=== PATIENT | male | born 1955 | race Caucasian/White ===

== ENCOUNTER 2017-11-06 18:00 | Emergency (ER) | payer OTHER ==
[2017-11-06 18:12] VITALS: BP 122/70; PULSE 80; TEMP 97.8; BMI 20.3
--- NOTE | 2017-11-06 19:17 | PDOC ---
History of Present Illness - History of Present Illness Initial Comments: 11/06/17 19:48 The patient is a 62 year old male, who presents to the emergency department with , a complaint that his right knee appears to have more prominent veins than usual. The patient reports that he has been having to walk around more lately than he normally does and states that he has noticed more veins around his right knee. The patient reports he was concerned of a possible blood clot secondary to the veins he has been noticing around his right knee so he decided to come to the ED for evaluation. The patient reports that he has a history of a ruptured meniscus in the right knee from many years ago. The patient also endorses some mild right knee pain. He denies any recent travel, surgery or immobility. He denies any history of blood clots or family history of blood clots. He denies any recent injury or trauma. He denies any numbness, weakness or tingling. He denies any difficulty ambulating. He denies any recent fevers, chills, headache or dizziness. He denies any recent nausea, vomit, diarrhea or constipation. He denies any recent chest pain or shortness of breath. PAST MEDICAL HISTORY: no significant history PAST SURGICAL HISTORY: Pt. reports past ruptured meniscus in the right knee. FAMILY HISTORY: no pertinent history SOCIAL HISTORY: Pt lives at home and is retired. Review of systems General: No fevers or chills, no weakness, no weight loss HEENT: No change in vision. No sore throat,. No ear pain CardioVascular: No chest pain or shortness of breath Respiratory:No cough, or wheezing. Gastrointestinal: no nausea, vomiting, diarrhea or constipation, No rectal bleeding Genitourinary: No dysuria, hematuria, or frequency Musculoskeletal: (+) Mild right knee pain. Neurologic: No headache, vertigo, dizziness or loss of consciousness Psychiatric: nor depression Skin: No rashes or easy bruising Endocrine: no increased thirst or abnormal weight change Allergic: no skin or latex allergy All other systems reviewed and normal Physical Exam GENERAL: The patient is awake, alert, and fully oriented, in no acute distress. HEAD: Normal with no signs of trauma. EYES: Pupils equal, round and reactive to light, extraocular movements intact, sclera anicteric, conjunctiva clear. EXTREMITIES: (+) Mild swelling, appears to be chronic, on the medial aspect of the right knee. No ligament instability. No ecchymosis or erythema. Neurovascular intact. No swelling or edema distal to the knee, no tender palpable cords in the medial thigh. Normal range of motion. NEUROLOGICAL: Normal speech, normal gait. PSYCH: Normal mood, normal affect. SKIN: Warm, Dry, normal turgor, no rashes or lesions noted. <Tawanda Mahoney - Last Filed: 11/06/17 19:48> - General History Source: Patient Exam Limitations: No Limitations - History of Present Illness Initial Comments: A portion of this note was documented by scribe services under my direction. I have reviewed the details of the note, within reason, and agree with the documentation. The case summary and management plan written by me. Assessment and plan: This is a 62-year-old male who comes in complaining of right knee discomfort only when he walks on it for a long time period. Patient here in the emergency room denies any discomfort at this time. On my exam patient had some mild swelling medially that appeared to be from an old injury but no tenderness or ligamentous instability. There is no evidence of DVT on my examination had no risk factors for DVT. Patient was referred to an orthopedist if symptoms persisted and told to wear some support on his knee when he walked for long periods. Patient discharged home 11/06/17 19:55 <Garima Iqbal I - Last Filed: 11/06/17 19:56> - General Chief Complaint: Pain Stated Complaint: RIGHT KNEE/LEG PAIN Time Seen by Provider: 11/06/17 19:16 Past History <Tawanda Mahoney - Last Filed: 11/06/17 19:48> - Past Medical History COPD: No Diabetes: No GI Disorders: Yes (COLITIS) HTN: No - Surgical History Appendectomy: Yes - Suicide/Smoking/Psychosocial Hx Smoking Status: No Smoking History: Never smoked Have you smoked in the past 12 months: No Number of Cigarettes Smoked Daily: 0 Hx Alcohol Use: No Drug/Substance Use Hx: No Substance Use Type: None <Garima Iqbal I - Last Filed: 11/06/17 19:56> - Past Medical History Allergies/Adverse Reactions: Allergies Allergy/AdvReac Type Severity Reaction Status Date / Time lactose AdvReac Mild Verified 11/06/17 18:01 Home Medications: Ambulatory Orders Sulfasalazine [Azulfidine] 500 mg PO QID 01/24/15 *Physical Exam - Vital Signs Last Vital Signs Temp Pulse Resp BP Pulse Ox 97.8 F 80 18 122/70 100 11/06/17 18:00 18 18:00 11/06/17 18:00 11/06/17 18:00 11/06/17 18:00 <Tawanda Mahoney - Last Filed: 11/06/17 19:48> - Vital Signs Last Vital Signs Temp Pulse Resp BP Pulse Ox 97.8 F 80 18 122/70 100 11/06/17 18:00 11/06/17 18:00 11/06/17 18:00 11/06/17 18:00 11/06/17 18:00 <Garima Iqbal I - Last Filed: 11/06/17 19:56> *DC/Admit/Observation/Transfer - Attestations Scribe Attestion: 11/06/17 19:52 Documentation prepared by Tawanda Mahoney, acting as medical billing service for Garima Iqbal MD. <Tawanda Mahoney - Last Filed: 11/06/17 19:48> - Discharge Dispostion Admit: No <Garima Iqbal I - Last Filed: 11/06/17 19:56> Diagnosis at time of Disposition: Strain of right knee Qualifiers: Encounter type: initial encounter Qualified Code(s): S86.911A - Strain of unspecified muscle(s) and tendon(s) at lower leg level, right leg, initial encounter - Discharge Dispostion Disposition: HOME Condition at time of disposition: Stable - Patient Instructions Additional Instructions: For the pain you can take ibuprofen or Tylenol. In addition to that an elastic knee support and wear it when you have to do a lot of walking. It is [id number] at any pharmacy Follow-up with the orthopedist if he needed an orthopedist call [phone] for an appointment on Wednesday Return to the emergency department immediately with ANY new, persistent or worsening symptoms. Continue any medications as previously prescribed by your physician. You should follow up with your primary doctor as soon as possible regarding today's emergency department visit. . Please make sure your doctor reviews the results of your emergency evaluation. Thank you for coming to the Emergency Department today for your care. It was a pleasure to see you today. Please note that your evaluation is INCOMPLETE until you follow-up with your doctor.
== END 2017-11-06 19:55 | disposition home or self-care (01) ==
LOC: FER 18:00
DX: S86.911A Strain of unspecified muscle(s) and tendon(s) at lower leg level, right leg, initial encounter (principal); X58.XXXA Exposure to other specified factors, initial encounter; Y93.89 Activity, other specified; Y92.9 Unspecified place or not applicable
CPT/HCPCS: 99282-25

== ENCOUNTER 2018-08-30 00:29 | Emergency (ER) | payer OTHER ==
[2018-08-30 00:37] VITALS: BP 131/91; PULSE 62; TEMP 98.5; BMI 20.3
[2018-08-30] MEDS ORDERED: NAPROXEN 500 MG TABLET (FP) PO ONE (01:04)
--- NOTE | 2018-08-30 01:04 | PDOC ---
History of Present Illness <Frances Andino - Last Filed: 08/30/18 01:25> - History of Present Illness Initial Comments: 08/30/18 01:56 The patient is a 62 year old male, with a significant past medical history of colitis and sinusitis, who presents to the emergency department today complaining of top right incisor pain for one day. Patient notes he began experiencing pain in his right top molar, which he notes then radiated to his right top incisor. He states the pain is sharp in nature, exacerbated with biting down while eating, and is tender to touch. Patient reports taking an ibuprofen this afternoon at 2pm, and tylenol with his dinner to help alleviate his symptoms. He admits that he has not been to his dentist in a few years, and has multiple cavities in his teeth. The patient denies chest pain, shortness of breath, headache and dizziness. Denies fever, chills, nausea, vomit, diarrhea and constipation. Denies dysuria, frequency, urgency and hematuria. Allergies: NKA Past surgical history: None reported Social history: No reported <Rufina Hollis - Last Filed: 08/30/18 02:03> - General Chief Complaint: Pain, Acute Stated Complaint: TOOTH PAIN Time Seen by Provider: 08/30/18 00:54 Past History <Frances Andino - Last Filed: 08/30/18 01:25> - Past Medical History COPD: No Diabetes: No GI Disorders: Yes (COLITIS) HTN: No - Surgical History Appendectomy: Yes - Suicide/Smoking/Psychosocial Hx Smoking Status: No Smoking History: Never smoked Have you smoked in the past 12 months: No Number of Cigarettes Smoked Daily: 0 Information on smoking cessation initiated: No Hx Alcohol Use: No Drug/Substance Use Hx: No Substance Use Type: None <Rufina Hollis - Last Filed: 08/30/18 02:03> - Past Medical History Allergies/Adverse Reactions: Allergies Allergy/AdvReac Type Severity Reaction Status Date / Time lactose AdvReac Mild Verified 08/30/18 00:32 Home Medications: Ambulatory Orders Sulfasalazine [Azulfidine] 500 mg PO QID 01/24/15 Naproxen 500 mg PO BID PRN #14 tablet 08/30/18 Review of Systems - Review of Systems Comments:: 08/30/18 02:01 GENERAL/CONSTITUTIONAL: No fever or chills. No weakness. HEAD, EYES, EARS, NOSE AND THROAT: +Right top incisor pain. +Right top molar pain. No change in vision. No ear pain or discharge. No sore throat. GASTROINTESTINAL: No nausea, vomiting, diarrhea or constipation. GENITOURINARY: No dysuria, frequency, or change in urination. CARDIOVASCULAR: No chest pain or shortness of breath. RESPIRATORY: No cough, wheezing, or hemoptysis. MUSCULOSKELETAL: No joint or muscle swelling or pain. No neck or back pain. SKIN: No rash NEUROLOGIC: No headache, vertigo, loss of consciousness, or change in strength/ sensation. ENDOCRINE: No increased thirst. No abnormal weight change. HEMATOLOGIC/LYMPHATIC: No anemia, easy bleeding, or history of blood clots. ALLERGIC/IMMUNOLOGIC: No hives or skin allergy. <Rufina Hollis - Last Filed: 08/30/18 02:03> *Physical Exam - Vital Signs Last Vital Signs Temp Pulse Resp BP Pulse Ox 98.5 F 62 18 131/91 100 08/30/18 00:33 08/30/18 00:33 08/30/18 00:33 08/30/18 00:33 08/30/18 00:33 <Frances Andino - Last Filed: 08/30/18 01:25> - Vital Signs Last Vital Signs Temp Pulse Resp BP Pulse Ox 98.5 F 62 18 131/91 100 08/30/18 00:33 08/30/18 00:33 08/30/18 00:33 08/30/18 00:33 08/30/18 00:33 - Physical Exam Comments: 08/30/18 02:01 GENERAL: Awake, alert, and fully oriented, in no acute distress EYES: Sclera anicteric, conjunctiva clear ENT: +Multiple dental caries with significant caries to teeth 8 and 9, No pulp or dentin exposure. No surrounding erythema, abscess, or discharge. No gum edema. Normal submandibular space. LUNGS: Breath sounds equal, clear to auscultation bilaterally. No wheezes, and no crackles HEART: Regular rate and rhythm, normal S1 and S2, no murmurs, rubs or gallops ABDOMEN: Soft, nontender, normoactive bowel sounds. No guarding, no rebound. No masses EXTREMITIES: Normal range of motion, no edema. No clubbing or cyanosis. No cords , erythema, or tenderness NEUROLOGICAL: Normal speech, cranial nerves intact, normal gair <Rufina Hollis - Last Filed: 08/30/18 02:03> Moderate Sedation - Procedure Monitoring Vital Signs: Procedure Monitoring Vital Signs Temperature 98.5 F 08/30/18 00:33 Pulse Rate 62 08/30/18 00:33 Respiratory Rate 18 08/30/18 00:33 Blood Pressure 131/91 08/30/18 00:33 O2 Sat by Pulse Oximetry (%) 100 08/30/18 00:33 <Frances Andino - Last Filed: 08/30/18 01:25> - Procedure Monitoring Vital Signs: Procedure Monitoring Vital Signs Temperature 98.5 F 08/30/18 00:33 Pulse Rate 62 08/30/18 00:33 Respiratory Rate 18 08/30/18 00:33 Blood Pressure 131/91 08/30/18 00:33 O2 Sat by Pulse Oximetry (%) 100 08/30/18 00:33 <Rufina Hollis - Last Filed: 08/30/18 02:03> ED Treatment Course - Medications Given in the ED: ED Medications Discontinued Medications Generic Name Dose Route Start Last Admin Trade Name Freq PRN Reason Stop Dose Admin Naproxen 500 mg 08/30/18 01:04 08/30/18 01:10 Naprosyn - PO 08/30/18 01:05 500 mg ONCE ONE Administration <Frances Andino - Last Filed: 08/30/18 01:25> Medical Decision Making - Medical Decision Making 08/30/18 01:05 62yo M presents to the ED for pain teeth 8 and 9. SIgnificant dental caries noted on exam with no pulp/dentin exposure. No evidence of surrounding infection , abscess. Pt has appointment with dentist tomorrow, but requests pain medication to get him through the night. Plan for naproxen (pt last took advil 11hrs ago) and DC. I discussed the physical exam findings, ancillary test results and final diagnoses with the patient. I answered all of the patient's questions. The patient was satisfied with the care received and felt comfortable with the discharge plan and treatment plan. The patient will call their primary care physician within 24 hours to arrange follow-up and will return to the Emergency Department with any new, persistent or worsening symptoms. <Rufina Hollis - Last Filed: 08/30/18 02:03> *DC/Admit/Observation/Transfer - Attestations Scribe Attestion: Documentation prepared by ROYA Duong, acting as medical tech for Rufina Hollis MD. 08/30/18 01:26 <Frances Andino - Last Filed: 08/30/18 01:25> - Discharge Dispostion Decision to Admit order: No - Attestations Physician Attestion: 08/30/18 01:09 I, Dr. Rufina Hollis MD, attest that this document has been prepared under my direction and personally reviewed by me in its entirety. I further attest, that it accurately reflects all work, treatment, procedures and medical decision -making performed by me. <Rufina Hollis - Last Filed: 08/30/18 02:03> Diagnosis at time of Disposition: Tooth pain, Dental caries, Oral pain - Discharge Dispostion Disposition: HOME Condition at time of disposition: Stable - Prescriptions Prescriptions: Naproxen 500 mg PO BID PRN #14 tablet PRN Reason: Pain - Patient Instructions Printed Discharge Instructions: DI for Tooth Decay Additional Instructions: Follow up with your dentist within 1-2 days Take naproxen twice a day as needed for pain Take over the counter nexium with this medication to protect your stomach Do not take advil, aleve, motrin, ibuprofen or any other NSAIDs while you are taking naproxen Return to the emergency department if you have any new, worsening, or concerning symptoms
[2018-08-30] MEDS ORDERED: NAPROXEN 500 MG TABLET (FP) ONE (01:07)
== END 2018-08-30 01:11 | disposition home or self-care (01) ==
LOC: FER 00:29
DX: K02.9 Dental caries, unspecified (principal); K08.89 Other specified disorders of teeth and supporting structures
CPT/HCPCS: 99281-25

== ENCOUNTER 2019-03-06 23:22 | Emergency (ER) | payer OTHER ==
--- NOTE | 2019-03-06 23:25 | PDOC ---
History of Present Illness - General Chief Complaint: Pain, Acute Stated Complaint: RASH BETWEEN LEGS Time Seen by Provider: 03/06/19 23:24 - History of Present Illness Initial Comments: This 63-year-old man with a history of colitis but no other significant past medical history presents with 1 day history of intermittent tenderness of area of his right groin region. Patient states that he noticed sharp pain, especially while walking in the medial portion of his right upper thigh. He states that he noted redness in this area earlier; he states that he is prone to heat rash in the groin area, especially in the hot weather. He denies pruritus or discharge in this area. No history of localized trauma. He states that he drives area very carefully after bathing and uses "Goldbond" powder to absorb moisture. He notes no other rash. Past History - Past Medical History Allergies/Adverse Reactions: Allergies Allergy/AdvReac Type Severity Reaction Status Date / Time lactose AdvReac Mild Verified 03/06/19 23:24 Home Medications: Ambulatory Orders NK [No Known Home Medication] 03/06/19 COPD: No Diabetes: No GI Disorders: Yes (COLITIS) HTN: No - Surgical History Appendectomy: Yes - Suicide/Smoking/Psychosocial Hx Smoking Status: No Smoking History: Never smoked Have you smoked in the past 12 months: No Number of Cigarettes Smoked Daily: 0 Hx Alcohol Use: No Drug/Substance Use Hx: No Substance Use Type: None Review of Systems - Review of Systems Able to Perform ROS?: Yes Comments:: 12 point review of systems is negative except for what is noted in the history of present illness *Physical Exam - Physical Exam Comments: GENERAL: Adult male, mildly anxious but in no acute distress HEAD: Normal with no signs of trauma. EYES: PERRLA, EOMI, sclera anicteric, conjunctiva clear. NEUROLOGICAL: Cranial nerves II through XII grossly intact. Normal speech. No focal neurological deficits. ABDOMEN/PELVIS: No tenderness/masses of abdomen . Normal external genitalia without lesions or masses. No penile discharge Skin of bilateral proximal thighs normal except for widely scattered, faintly erythematous fine papules of medial proximal right thigh No scaling, vesicles noted. Medical Decision Making - Medical Decision Making 63-year-old man complaining of intermittent sharp pain in the right proximal thigh, medial aspect. He describes pain as occurring especially with friction in the area, especially with walking. No other rash or other complaint noted. Exam shows this area with widely scattered fine erythematous papules. No significant inflammation/edema/scaling or vesicles. No evidence of secondary candidal or bacterial infection. Clinical presentation consistent with either localized irritation secondary to physical friction or minor rash related to sweat gland blockage ("heat rash"). In any case, the patient does not need direct treatment with medication and this was explained to him. He will continue to keep the areas dry as possible and avoid excessive friction against clothing, especially in humid/hot weather. He should return to the emergency room if he has more swelling/redness in the area of the rash or pain becomes severe. Otherwise, he should follow-up with (who he will be using as his doctor since his long-time doctor has retired) *DC/Admit/Observation/Transfer Diagnosis at time of Disposition: Heat rash - Discharge Dispostion Disposition: HOME Condition at time of disposition: Stable - Referrals Referrals: Bong Garcia MD [Staff Physician] - - Patient Instructions Printed Discharge Instructions: DI for Rash Additional Instructions: Continue to dry area carefully after bathing Can use absorbent powder in the area especially during the hot weather Tylenol as needed for pain as discussed Return to ER or see Dr. Garcia if you have worsening pain/redness/swelling of the area - Post Discharge Activity
[2019-03-06 23:29] VITALS: BP 122/78; PULSE 62; TEMP 98.5; BMI 20.3
== END 2019-03-06 23:55 | disposition home or self-care (01) ==
LOC: FER 23:22
DX: L74.0 Miliaria rubra (principal)
CPT/HCPCS: 99281-25

== ENCOUNTER 2019-05-15 16:22 | Emergency (ER) | payer OTHER ==
[2019-05-15 16:31] VITALS: BP 116/70; PULSE 64; TEMP 98.2; BMI 20.2
[2019-05-15] MEDS ORDERED: AMOX TR/POT CLAV 875MG/125MG TABLETS (FP) PO ONE (16:34)
[2019-05-15] MEDS ORDERED: DIPHTH,PERTUSS(ACELL),TET 0.5 ML DISP.SYRIN IM ONE ×2 (16:35→16:43)
--- NOTE | 2019-05-15 16:38 | PDOC ---
Documentation entered by Kumar Nicole SCRIBE, acting as scribe for Alyce Lee MD. Alyce Lee MD: This documentation has been prepared by the Bonnie marroquin Xhesika, SCRIBE, under my direction and personally reviewed by me in its entirety. I confirm that the documentation accurately reflects all work, treatment, procedures, and medical decision making performed by me. History of Present Illness - General Chief Complaint: Bite Stated Complaint: DOG BITE History Source: Patient Exam Limitations: No Limitations - History of Present Illness Initial Comments: 05/15/19 16:40 The patient is a 63 year old male with a significant past medical history of colitis and sinusitis who presents to the ED with L elbow wound s/p dog bite x 1 week. The patient notes his neighbor's dog bit him and punctured his L elbow with its teeth. Patient denies any pain. Patient notes he has been washing the wound with iodine and alcohol. Patient notes his tetanus is not up to date. Patient notes the dog is up to date with vaccinations. Denies redness/ streaking or drainage. Denies arm tingling/ numbness, leg swelling. Denies fever, chills. Allergies: lactose Past Medical History: as documented in EMR/HPI Social history: No tobacco or ETOH, or drug use. Surgical history: none noted Meds: as documented in EMR Family history: noncontributory PMD: Bong Rizzo 05/15/19 16:49 Past History - Past Medical History Allergies/Adverse Reactions: Allergies Allergy/AdvReac Type Severity Reaction Status Date / Time lactose AdvReac Mild Verified 03/06/19 23:24 Home Medications: Ambulatory Orders Amox-Tr/K Cl [Augmentin - 875Mg Tablet] 1 tab PO BID #14 tablet 05/15/19 COPD: No Diabetes: No GI Disorders: Yes (COLITIS) HTN: No - Surgical History Appendectomy: Yes - Suicide/Smoking/Psychosocial Hx Smoking Status: No Smoking History: Never smoked Have you smoked in the past 12 months: No Number of Cigarettes Smoked Daily: 0 Hx Alcohol Use: No Drug/Substance Use Hx: No Substance Use Type: None Review of Systems - Review of Systems Able to Perform ROS?: Yes Comments:: 05/15/19 16:42 Constitutional: no fevers or chills. MUSCULOSKELETAL: No joint pain and swelling. No muscle pain/arthralgias. Back: no back pain SKIN: (+) L elbow wound. no redness or skin changes, no discharge. Hematologic: no easy bruising/bleeding. NEUROLOGIC: No weakness, numbness or tingling. Allergic/Immunologic: no allergies All other systems reviewed and negative, or as documented in HPI. *Physical Exam - Vital Signs Last Vital Signs Temp Pulse Resp BP Pulse Ox 98.2 F 64 16 116/70 97 05/15/19 16:23 05/15/19 16:23 05/15/19 16:23 05/15/19 16:23 05/15/19 16:23 - Physical Exam Comments: 05/15/19 16:42 General: NAD, well appearing Vascular: 2+ radialis pulses symmetric and equal. Neuro: distal sales activity manager strength 5/5. sensation grossly intact in median/radial/ ulnar distribution. MSK: soft compartments, Cap refill <2 sec. 2+ radialis pulses bilaterally and symmetric. no joint tenderness. FROM at elbow. Skin: (+) L elbow on dorsal aspect with 1cm by 1cm superficial wound with granulation tissue and healing, no drainage, no malodor.. Non tender. Non bloody. No foreign body seen on dorsal aspect. normal color, warm and well perfused 05/15/19 16:49 Medical Decision Making - Medical Decision Making 05/15/19 16:50 Vital Signs Temp Pulse Resp BP Pulse Ox 98.2 F 64 16 116/70 97 05/15/19 16:23 05/15/19 16:23 05/15/19 16:23 05/15/19 16:23 05/15/19 16:23 VS reviewed, wnl. tetanus given 1 week out from initial event no systemic findings wound appears to be healing with granulation tissue showed pt and family member proper cleaning, wound care, water and soap, no irritating agents such as alcohol or HOOH. trial augmentin x 1 week, return precautions for worsening sx. topical bacitracin DC stable condition. filled out JERAMIE sheet on animal bites. *DC/Admit/Observation/Transfer Diagnosis at time of Disposition: Dog bite Qualifiers: Encounter type: sequela Qualified Code(s): W54.0XXS - Bitten by dog, sequela - Discharge Dispostion Disposition: HOME Condition at time of disposition: Good Decision to Admit order: No - Prescriptions Prescriptions: Amox-Tr/K Cl [Augmentin - 875Mg Tablet] 1 tab PO BID #14 tablet - Referrals Referrals: Bong Garcia MD [Primary Care Provider] - - Patient Instructions Printed Discharge Instructions: DI for Dog Bite Additional Instructions: augmentin twice a day x 7 days, if not improving or worsening sx >24-48 hours, return sooner for reeval/wound check/IV abx. keep area clean and covered, may clean with soap and water. motrin/tylenol as needed for pain control. take medications with food. you were also given a tetanus shot. - Post Discharge Activity
[2019-05-15] MEDS ORDERED: AMOX TR/POT CLAV 875MG/125MG TABLETS (FP) ONE (16:42)
== END 2019-05-15 16:55 | disposition home or self-care (01) ==
LOC: FER 16:22
PROC: 3E0234Z Introduction of Serum, Toxoid and Vaccine into Muscle, Percutaneous Approach (ICD-10-PCS; principal; 2019-05-15)
DX: S51.052A Open bite, left elbow, initial encounter (principal); W54.0XXA Bitten by dog, initial encounter; Y93.89 Activity, other specified; Y92.89 Other specified places as the place of occurrence of the external cause; K52.9 Noninfective gastroenteritis and colitis, unspecified; J32.9 Chronic sinusitis, unspecified; Z91.011 Allergy to milk products
CPT/HCPCS: 90715; 99282-25

== ENCOUNTER 2021-09-24 16:58 | Emergency (ER) | payer OTHER ==
[2021-09-24 17:06] VITALS: BP 122/74; PULSE 85; TEMP 97.7; BMI 22.3
[2021-09-24 18:52] LABS: ALBUMIN 3.7 g/dl (3.4-5.0); BILIRUBIN,TOTAL 0.8 mg/dl (0.2-1); CALCIUM 8.8 mg/dl (8.5-10); CREATININE 0.9 mg/dl (0.55-1.3); MAGNESIUM 1.7 mg/dL (1.8-2.4); PHOSPHOROUS 3.3 mg/dl (2.5-4.9); TOT PROT 6.4 g/dl (6.4-8.2)
[2021-09-24 19:33] LABS: BASO % 0.6 % (0-2.0); EOS % 2.6 % (0-4.5); HEMATOCRIT 35.9 % (35.4-49); HEMOGLOBIN 12.4 GM/dL (11.7-16.9); LYMPH % 22.8 % (8-40); MCH 29.6 pg (25.7-33.7); MCHC 34.5 g/dl (32.0-35.9); MEAN CELL VOLUME 85.9 fl (80-96); MEAN PLT VOLUME 7.3 fl (7.5-11.1); PLATELET COUNT 220 10^3/uL (134-434); RBC 4.18 M/mm3 (4.00-5.60); RDW 13.9 % (11.9-15.9)
== END 2021-09-24 20:05 | disposition home or self-care (01) ==
LOC: FER 16:58
DX: R07.9 Chest pain, unspecified (principal); R94.31 Abnormal electrocardiogram [ECG] [EKG]
CPT/HCPCS: 36415; 71045-TC-FY; 80053; 83735; 84100; 84484; 85025; 93005; 99285-25

== ENCOUNTER 2022-04-01 16:50 | Emergency (ER) | payer OTHER ==
[2022-04-01 17:00] VITALS: BP 109/67; PULSE 61; RESP 18; TEMP 98.5; BMI 22.8
== END 2022-04-01 17:17 | disposition home or self-care (01) ==
LOC: FER 16:50
DX: S00.411A Abrasion of right ear, initial encounter (principal)
CPT/HCPCS: 99283-25

== ENCOUNTER 2022-07-18 12:10 | Emergency (ER) | payer OTHER ==
[2022-07-18 12:26] VITALS: BP 129/79; PULSE 79; RESP 16; TEMP 97.9; BMI 23.1
[2022-07-18] MEDS ORDERED: FLUORESCEIN NA 1 EA STRIP OD ONE (12:47)
[2022-07-18] MEDS ORDERED: FLUORESCEIN NA 1 EA STRIP ONE (12:48)
== END 2022-07-18 13:35 | disposition home or self-care (01) ==
LOC: FER 12:10
DX: H53.141 Visual discomfort, right eye (principal)
CPT/HCPCS: 99283-25

== ENCOUNTER 2022-08-02 12:18 | Emergency (ER) | payer OTHER ==
[2022-08-02 12:43] VITALS: BP 123/90; PULSE 77; RESP 16; TEMP 98.6; BMI 23.1
== END 2022-08-02 13:02 | disposition home or self-care (01) ==
LOC: FER 12:18
DX: J09.X2 Influenza due to identified novel influenza A virus with other respiratory manifestations (principal); R05.1 Acute cough
CPT/HCPCS: 0241U-QW; 99283-25

== ENCOUNTER 2023-08-18 08:15 | Emergency (ER) | payer OTHER ==
[2023-08-18 08:44] VITALS: BP 127/81; PULSE 92; RESP 16; TEMP 98.1; BMI 22.4
== END 2023-08-18 10:22 | disposition home or self-care (01) ==
LOC: FER 08:15
DX: R05.9 Cough, unspecified (principal); J02.9 Acute pharyngitis, unspecified; R68.83 Chills (without fever); J06.9 Acute upper respiratory infection, unspecified; Z20.822 Contact with and (suspected) exposure to COVID-19
CPT/HCPCS: 0241U-QW; 71045-TC-FY; 87651; 99284-25

== ENCOUNTER 2023-10-20 10:01 | Emergency (ER) | payer OTHER ==
[2023-10-20 10:31] VITALS: BP 93/63; PULSE 74; RESP 18; TEMP 97.8; BMI 29.1
[2023-10-20 12:11] LABS: URINE MUCUS FEW
== END 2023-10-20 11:51 | disposition home or self-care (01) ==
LOC: FER 10:01
DX: U07.1 COVID-19 (principal); J06.9 Acute upper respiratory infection, unspecified; R50.9 Fever, unspecified; R53.81 Other malaise; R05.9 Cough, unspecified; R09.81 Nasal congestion; R11.0 Nausea; R63.8 Other symptoms and signs concerning food and fluid intake
CPT/HCPCS: 0241U-QW; 71046-TC-FY; 81003; 81015; 87086; 99284-25

== ENCOUNTER 2025-03-27 06:19 | Day surgery (SDC) | payer OTHER ==
[2025-03-27] MEDS ORDERED: BUPIVACAINE HCL/PF 0.25% (2.5MG/ML) 10 ML VIAL ONE (11:03)
[2025-03-27] MEDS ORDERED: PROPOFOL 20 ML ONE (11:26)
[2025-03-27] MEDS ORDERED: MIDAZOLAM HCL 2 MG/2 ML SINGLE DOSE VIAL ONE (11:26)
[2025-03-27] MEDS ORDERED: PHENYLEPHRINE HCL 10 MG/1 ML SINGLE DOSE VIAL ONE ×2 (11:27→11:28)
[2025-03-27] MEDS ORDERED: ROCURONIUM BROMIDE 50 MG/5 ML SYRINGE ONE ×2 (11:27→12:52)
[2025-03-27] MEDS: ceFAZolin 2 GRAM PREMIX BAG IVPB ONE ×2 (11:59)
[2025-03-27] MEDS: BUPIVACAINE HCL/PF 0.25% (2.5MG/ML) 10 ML VIAL IJ ONE ×4 (12:14)
[2025-03-27 12:27] VITALS: BMI 22.4
[2025-03-27] MEDS: LACTATED RINGERS SOLUTION 1,000 ML IV SCH (14:40)
[2025-03-27] MEDS ORDERED: PATIENT'S OWN MEDICATION (NON-FORMULARY) (Difluprednate [Durezol] 5 ML Drops) OU SCH (18:00)
[2025-03-27] MEDS: ACETAMINOPHEN 325 MG TABLET (FP) PO SCH (19:33)
[2025-03-27] MEDS: KETOROLAC TROMETHAMINE 0.5% EYE DROP 1 DROP DROPS OD SCH (21:04)
[2025-03-27 21:21] LABS: ABSOLUTE IMMATURE GRANULOCYTES 0.04 x10^3/uL (0.0-0.031); BASOPHILS # 0.01 x10^3/uL (0.01-0.08); EOSINOPHIL % 0.0 % (0.8-7.0); EOSINOPHILS # 0.00 x10^3/uL (0.04-0.54); MCHC 33.1 g/dl (32.3-36.5); MEAN CELL VOLUME 88.3 fl (79.0-92.2); MEAN PLT VOLUME 8.5 fl (9.4-12.4); MONOCYTE # 0.67 x10^3/uL (0.30-0.82); MONOCYTE % 6.6 % (5.3-12.2); RDW 13.2 % (12.2-16.6)
[2025-03-27] MEDS: ACETAMINOPHEN 325 MG TABLET (FP) PO PRN (21:22)
[2025-03-27 21:41] LABS: CO2 29.0 mmol/L (21-32); GLUCOSE,RANDOM 186.0 mg/dL (74-106)
[2025-03-27 21:44] LABS: CREATININE 0.9 mg/dL (0.55-1.3); SGOT/AST 12.0 U/L (15-37); SGPT/ALT 15.0 U/L (13-61)
[2025-03-27 21:46] LABS: TOT PROT 6.3 g/dl (6.4-8.2)
[2025-03-27 21:47] LABS: ALK PHOS 91.0 U/L (45-117)
[2025-03-28 07:50] VITALS: BP 110/62; PULSE 54; RESP 18; TEMP 98.1
[2025-03-28 08:42] LABS: ABSOLUTE IMMATURE GRANULOCYTES 0.02 x10^3/uL (0.0-0.031); BASOPHILS # 0.01 x10^3/uL (0.01-0.08); EOSINOPHIL % 1.4 % (0.8-7.0); EOSINOPHILS # 0.12 x10^3/uL (0.04-0.54); MCHC 32.2 g/dl (32.3-36.5); MEAN CELL VOLUME 88.4 fl (79.0-92.2); MEAN PLT VOLUME 9.0 fl (9.4-12.4); MONOCYTE # 0.85 x10^3/uL (0.30-0.82); MONOCYTE % 9.9 % (5.3-12.2); RDW 13.3 % (12.2-16.6)
[2025-03-28 09:18] LABS: CO2 30.0 mmol/L (21-32)
[2025-03-28 09:19] LABS: GLUCOSE,RANDOM 96.0 mg/dL (74-106)
[2025-03-28 09:21] LABS: SGOT/AST 16.0 U/L (15-37); SGPT/ALT 14.0 U/L (13-61)
[2025-03-28 09:22] LABS: CREATININE 0.7 mg/dL (0.55-1.3); TOT PROT 5.5 g/dl (6.4-8.2)
[2025-03-28 09:24] LABS: ALK PHOS 78.0 U/L (45-117)
[2025-03-28] MEDS: MULTIVITAMINS (DAILY MVI) TABLET (FP) PO SCH (09:54)
== END 2025-03-28 11:01 | disposition home or self-care (01) ==
LOC: JASUSAT 06:19 → JASU-SURG 06:19 → SUATTDRO 06:19 → J8W 18:42 → JASUSAT 03-28 11:01
PROVIDERS: ATTEND Nurse Practitioner Acute Care
PROC: 8E0W4CZ Robotic Assisted Procedure of Trunk Region, Percutaneous Endoscopic Approach (ICD-10-PCS; 2025-03-27)
PROC: 0YUA4JZ Supplement Bilateral Inguinal Region with Synthetic Substitute, Percutaneous Endoscopic Approach (ICD-10-PCS; principal; 2025-03-27 10:45)
DX: K40.20 Bilateral inguinal hernia, without obstruction or gangrene, not specified as recurrent (principal)
CPT/HCPCS: 36415; 80053; 83735; 84100; 85025; 86850; 86900; 86901; 94760; C1781